=== PATIENT | female | born 1940 | race Asian ===

== ENCOUNTER 2019-01-21 08:14 | Inpatient (IN) | payer MEDICARE ==
[2019-01-21] VITALS (40 sets, daily range): BP systolic 92–217; BP diastolic 48–110
[~2019-01-21] VITALS: Ht 157.5 cm; Wt 73.5 kg
[2019-01-21] MEDS ORDERED: ONDANSETRON HCL 4MG/2ML INJ IV STA (08:54)
[2019-01-21] MEDS ORDERED: KETOROLAC 30MG/ML VIAL IV STA (08:54)
[2019-01-21 09:25] LABS: BASOPHILS % 0.1 % (0.0-2.0); CHLORIDE 88 mEq/L (98-107); EOSINOPHILS % 0.2 % (0.0-5.0); HEMATOCRIT. 49.6 % (36.0-48.0); HEMOGLOBIN. 17.2 g/dL (12.0-16.0); LYMPHOCYTES % 10.1 % (20.0-50.0); MEAN CORPUSCULAR HEMOGLOBIN 31.6 pg (28.0-32.0); MEAN CORPUSCULAR VOLUME 91.1 fL (81.0-99.0); MEAN PLATELET VOLUME 8.4 fl (7.4-10.4); MONOCYTES % 3.7 % (2.0-8.0); NEUTROPHILS % 85.9 % (40.0-76.0); PLATELET 199 x1000/uL (130-400); RED BLOOD CELL COUNT 5.45 mill/uL (4.2-5.4); RED CELL DISTRIBUTION WIDTH 13.5 % (11.6-14.6)
[2019-01-21 09:27] LABS: INR 1.1; PROTHROMBIN TIME 11.8 sec (9.6-11.0)
[2019-01-21] MEDS ORDERED: LEVOFLOXACIN 750MG PREMIX 150 ML IV ONE (10:30)
[2019-01-21] MEDS ORDERED: METRONIDAZOLE 500 MG PREMIX 100 ML IV ONE ×2 (10:30→11:17)
[2019-01-21] MEDS ORDERED: BUPIVACAINE HCL 0.5% (5MG/ML) 50ML ONE (10:43)
[2019-01-21] MEDS ORDERED: DEXT 5%/0.45% NACL KCL 20MEQ/L 1,000 ML IV SCH (10:50)
[2019-01-21] MEDS ORDERED: SODIUM CHLORIDE 0.9% 500 ML IV ONE (10:51)
[2019-01-21] MEDS ORDERED: SKIN ADHESIVE 0.7 GM EA TOP ONE (10:54)
[2019-01-21] MEDS ORDERED: ONDANSETRON HCL 4MG/2ML INJ IV PRN ×3 (11:00→14:00)
[2019-01-21] MEDS ORDERED: NEOSTIGMINE METHYLSULFATE 1MG/ML 10 ML VIAL ONE (11:16)
[2019-01-21] MEDS ORDERED: FENTANYL CITRATE/PF 50MCG/ML 2ML VIAL ONE ×2 (11:16→12:41)
[2019-01-21] MEDS ORDERED: ROCURONIUM BROMIDE 10MG/ML VIAL 5ML IV ONE (11:16)
[2019-01-21] MEDS ORDERED: PROPOFOL 200MG/20ML VIAL IV ONE (11:17)
[2019-01-21] MEDS ORDERED: LEVOFLOXACIN 500MG PREMIX 0 ML IV ONE (11:17)
[2019-01-21] MEDS ORDERED: DEXAMETHASONE 4MG/ML 1ML VIAL ONE (11:17)
[2019-01-21] MEDS ORDERED: GLYCOPYRROLATE 0.2 MG/ML 2ML VIAL ONE (11:17)
[2019-01-21] MEDS ORDERED: ONDANSETRON HCL 4MG/2ML INJ ONE (11:17)
[2019-01-21] MEDS ORDERED: MIDAZOLAM HCL 2 MG/2 ML VIAL ONE (11:17)
[2019-01-21] MEDS ORDERED: HYDROMORPHONE HCL/PF 2MG/ML CPJ IV PRN (12:15)
[2019-01-21] MEDS ORDERED: MEPERIDINE HCL/PF 25MG/ML CPJ IV PRN (12:15)
[2019-01-21] MEDS ORDERED: LABETALOL 5MG/ML SYR 20 MG/4 ML SYRINGE IV PRN (12:15)
[2019-01-21] MEDS ORDERED: PHENYLEPHRINE HCL 10 MG/ML 1ML (IV VIAL) IV ONE (12:56)
[2019-01-21] MEDS ORDERED: PIPERACILLIN/TAZ 3.375G PREMIX 50 ML IV SCH (14:00)
[2019-01-21] MEDS ORDERED: IPRATROPIUM/ALBUTEROL 0.5-3(2.5)MG/3ML NEB HHN SCH (14:00)
[2019-01-21] MEDS ORDERED: ENOXAPARIN 40MG/0.4ML SYR SUBCUT SCH (14:00)
[2019-01-21 14:27] LABS: BG BASE EXCESS -5.5 mmol/L (-2.0-2.0); BG CARBOXYHEMOGLOBIN 0.2 % (0.5-1.5); BG DEOXYHEMOGLOBIN 0.4 % (0.0-5.0); BG FRACTION INSPIRED OXYGEN 100; BG HCO3 ACT 20.7 mmol/L (22.0-26.0); BG OXYGEN SATURATION 99.6 % (92.0-98.5); BG OXYHEMOGLOBIN 99.4 % (94.0-97.0); BG PCO2 42.9 mmHg (35.0-45.0); BG PH 7.302 (7.350-7.450); BG PO2 409.6 mmHg (75.0-100.0); BG SAMPLE SITE RIGHT RADIAL; BG TIDAL VOLUME(mL) 500 mL; BG TOTAL HEMOGLOBIN 14.8 g/dL (12.0-18.0); BG VENT MODE VENT - A/C; BG VENT RATE 10 set
[2019-01-21] MEDS ORDERED: PROPOFOL 10MG/ML 100ML 100 ML IV PRN (14:30)
[2019-01-21] MEDS ORDERED: DEXT 5%/LACTATED RINGERS 1,000 ML IV SCH (15:00)
[2019-01-21] MEDS ORDERED: POTASSIUM CHLORIDE INJ 20 MEQ in SODIUM CHLORIDE 0.9% 1,000 ML IV SCH (17:00)
[2019-01-21 17:17] LABS: CLARITY URINE TURBID (CLEAR); COLOR URINE DARK YELLOW (YELLOW); KETONES URINE NEGATIVE (NEGATIVE); LEUKOCYTE ESTERASE URINE NEGATIVE (NEGATIVE); NITRITE URINE NEGATIVE (NEGATIVE); OCCULT BLOOD URINE 2+ (NEGATIVE); PROTEIN URINE 2+ (NEGATIVE); SPECIFIC GRAVITY URINE 1.016 (1.005-1.030); UROBILINOGEN URINE 0.2 E.U./dL (0.2-1.0)
[2019-01-21 17:43] LABS: T4 FREE 1.71 ng/dL (0.76-1.46)
[2019-01-21 17:45] LABS: CREATINE KINASE MB FRACTION 3.1 ng/mL (0.5-3.6)
[2019-01-21] MEDS: SODIUM CHL 0.9% + KCL 20MEQ/L 1,000 ML IV SCH (17:48)
[2019-01-21] MEDS: PIPERACILLIN/TAZ 2.25G PREMIX 50 ML IV SCH (17:48)
[2019-01-21 18:13] LABS: FOLIC ACID (FOLATE) SERUM >20 ng/mL ng/mL (>5.38)
[2019-01-21 18:24] LABS: VITAMIN B12 SERUM 1612 pg/mL (211-911)
[2019-01-21] MEDS ORDERED: FENTANYL CITRATE/PF 1,000 MCG in SODIUM CHLORIDE 0.9% 100 ML IV PRN (20:00)
[2019-01-21] MEDS: IPRATROPIUM/ALBUTEROL 0.5-3(2.5)MG/3ML NEB HHN SCH (20:26)
[2019-01-21] MEDS: FAMOTIDINE 20MG/2ML VIAL IV SCH (20:39)
[2019-01-21] MEDS ORDERED: DILTIAZEM HCL 5MG/ML 5ML VIAL IV SCH (23:00)
[2019-01-21] MEDS ORDERED: DILTIAZEM HCL 125 MG in DEXT 5% WATER 100 ML IV PRN (23:15)
[2019-01-22] VITALS (93 sets, daily range): BP systolic 93–160; BP diastolic 31–91
[2019-01-22 05:32] LABS: HEMATOCRIT. 37.4 % (36.0-48.0); MEAN CORPUSCULAR HEMOGLOBIN 31.8 pg (28.0-32.0); MEAN CORPUSCULAR VOLUME 91.3 fL (81.0-99.0); MEAN PLATELET VOLUME 8.3 fl (7.4-10.4); PLATELET 151 x1000/uL (130-400); RED CELL DISTRIBUTION WIDTH 13.3 % (11.6-14.6)
[2019-01-22] MEDS: PIPERACILLIN/TAZ 2.25G PREMIX 50 ML IV SCH ×2 (05:35→17:28)
[2019-01-22 05:40] LABS: CHLORIDE 104 mEq/L (98-107)
[2019-01-22 05:47] LABS: PHOSPHORUS 3.5 mg/dL (2.5-4.9)
[2019-01-22] MEDS: SODIUM CHL 0.9% + KCL 20MEQ/L 1,000 ML IV SCH ×4 (06:38→21:42)
[2019-01-22 07:55] LABS: BG BASE EXCESS -6.2 mmol/L (-2.0-2.0); BG CARBOXYHEMOGLOBIN 0.3 % (0.5-1.5); BG DEOXYHEMOGLOBIN 1.3 % (0.0-5.0); BG HCO3 ACT 16.6 mmol/L (22.0-26.0); BG OXYGEN SATURATION 98.7 % (92.0-98.5); BG OXYHEMOGLOBIN 98.4 % (94.0-97.0); BG PCO2 25.8 mmHg (35.0-45.0); BG PH 7.427 (7.350-7.450); BG PO2 138.9 mmHg (75.0-100.0); BG SAMPLE SITE RIGHT RADIAL; BG TIDAL VOLUME(mL) 500 mL; BG TOTAL HEMOGLOBIN 12.4 g/dL (12.0-18.0); BG VENT MODE VENT - A/C; BG VENT RATE 14 set
[2019-01-22] MEDS: IPRATROPIUM/ALBUTEROL 0.5-3(2.5)MG/3ML NEB HHN SCH ×3 (07:58→20:21)
[2019-01-22] MEDS: ENOXAPARIN 30MG/0.3ML SYR SUBCUT SCH (09:00)
[2019-01-22] MEDS ORDERED: LIDOCAINE HCL 1% 20ML VIAL (Pyxis) INJ ONE (09:22)
[2019-01-22 09:45] LABS: PLATELET ESTIMATE NORMAL
[2019-01-22] MEDS ORDERED: AMIODARONE HCL 150 MG in DEXT 5% WATER 100 ML IV ONE (10:15)
[2019-01-22] MEDS ORDERED: AMIODARONE HCL 900 MG in DEXT 5% WATER 500 ML IV SCH (10:15)
[2019-01-22] MEDS: BUPIVACAINE HCL 0.5% 125 ML in ON-Q PM012 DRUG DELIV DEVICE 1 EA IR SCH (13:00)
[2019-01-22 14:00] LABS: BG BASE EXCESS -5.7 mmol/L (-2.0-2.0); BG CARBOXYHEMOGLOBIN 0.3 % (0.5-1.5); BG DEOXYHEMOGLOBIN 1.5 % (0.0-5.0); BG FRACTION INSPIRED OXYGEN 40; BG HCO3 ACT 17.2 mmol/L (22.0-26.0); BG METHEMOGLOBIN 0.2 % (0.0-1.5); BG OXYGEN SATURATION 98.5 % (92.0-98.5); BG PCO2 26.5 mmHg (35.0-45.0); BG PO2 151.1 mmHg (75.0-100.0); BG PRESSURE SUPPORT 8; BG SAMPLE SITE RIGHT RADIAL; BG TOTAL HEMOGLOBIN 11.9 g/dL (12.0-18.0); BG VENT MODE VENT - CPAP
[2019-01-22] MEDS ORDERED: RACEPINEPHRINE 2.25% 0.5ML NEB VIAL HHN PRN (14:45)
[2019-01-22] MEDS: FAMOTIDINE 20MG/2ML VIAL IV SCH (21:42)
[2019-01-23] VITALS (94 sets, daily range): BP systolic 124–208; BP diastolic 54–125
[2019-01-23] MEDS: IPRATROPIUM/ALBUTEROL 0.5-3(2.5)MG/3ML NEB HHN SCH ×4 (02:22→21:24)
[2019-01-23] MEDS: PIPERACILLIN/TAZ 2.25G PREMIX 50 ML IV SCH ×2 (05:04→16:55)
[2019-01-23 06:06] LABS: HEMATOCRIT. 31.5 % (36.0-48.0); HEMOGLOBIN. 10.6 g/dL (12.0-16.0); MEAN CORPUSCULAR VOLUME 91.8 fL (81.0-99.0); MEAN PLATELET VOLUME 8.3 fl (7.4-10.4); PLATELET 162 x1000/uL (130-400); RED BLOOD CELL COUNT 3.43 mill/uL (4.2-5.4); RED CELL DISTRIBUTION WIDTH 14.1 % (11.6-14.6)
[2019-01-23 06:18] LABS: CHLORIDE 115 mEq/L (98-107)
[2019-01-23 06:24] LABS: PHOSPHORUS 1.9 mg/dL (2.5-4.9)
[2019-01-23] MEDS: ENOXAPARIN 30MG/0.3ML SYR SUBCUT SCH (08:54)
[2019-01-23] MEDS: SODIUM CHL 0.9% + KCL 20MEQ/L 1,000 ML IV SCH ×2 (08:54→16:22)
[2019-01-23] MEDS: HYDRALAZINE 20MG/ML VIAL IV PRN ×2 (10:06→16:55)
[2019-01-23 10:55] LABS: PLATELET ESTIMATE NORMAL
[2019-01-23] MEDS ORDERED: AMIODARONE HCL 900 MG in DEXT 5% WATER 500 ML IV SCH (13:00)
[2019-01-23] MEDS: BUPIVACAINE HCL 0.5% 125 ML in ON-Q PM012 DRUG DELIV DEVICE 1 EA IR SCH (13:00)
[2019-01-23] MEDS ORDERED: CLONIDINE HCL 0.2MG/24HR PATCH TD ONE (18:30)
[2019-01-23] MEDS ORDERED: POTASSIUM PHOS,M-BASIC-D-BASIC 15 MMOL in DEXT 5% WATER 245 ML IV SCH (18:30)
[2019-01-23] MEDS ORDERED: AMIODARONE HCL 50MG/ML 3ML VIAL IV ONE (19:00)
[2019-01-23] MEDS ORDERED: AMIODARONE HCL 150 MG in DEXT 5% WATER 100 ML IV NR (19:00)
[2019-01-23] MEDS ORDERED: HYDRALAZINE 20MG/ML VIAL IV ONE (20:30)
[2019-01-23] MEDS: FAMOTIDINE 20MG/2ML VIAL IV SCH (20:46)
[2019-01-24] VITALS (61 sets, daily range): BP systolic 120–188; BP diastolic 17–133
[2019-01-24] MEDS: SODIUM CHL 0.9% + KCL 20MEQ/L 1,000 ML IV SCH ×3 (01:42→21:20)
[2019-01-24] MEDS: HYDRALAZINE 20MG/ML VIAL IV PRN ×2 (04:41→11:58)
[2019-01-24] MEDS: PIPERACILLIN/TAZ 2.25G PREMIX 50 ML IV SCH ×2 (05:02→17:33)
[2019-01-24 05:05] LABS: HEMATOCRIT. 33.3 % (36.0-48.0); HEMOGLOBIN. 11.4 g/dL (12.0-16.0); MEAN CORPUSCULAR HEMOGLOBIN 31.2 pg (28.0-32.0); MEAN CORPUSCULAR VOLUME 91.3 fL (81.0-99.0); MEAN PLATELET VOLUME 8.2 fl (7.4-10.4); PLATELET 177 x1000/uL (130-400); RED BLOOD CELL COUNT 3.65 mill/uL (4.2-5.4); RED CELL DISTRIBUTION WIDTH 14.2 % (11.6-14.6)
[2019-01-24 05:30] LABS: PHOSPHORUS 1.7 mg/dL (2.5-4.9)
[2019-01-24] MEDS: IPRATROPIUM/ALBUTEROL 0.5-3(2.5)MG/3ML NEB HHN SCH ×3 (08:03→20:24)
[2019-01-24] MEDS: ENOXAPARIN 30MG/0.3ML SYR SUBCUT SCH (09:17)
[2019-01-24] MEDS ORDERED: MORPHINE SULFATE 4 MG/ML CPJ (NOT FOR IM USE) IV PRN (09:30)
[2019-01-24 10:20] LABS: PLATELET ESTIMATE NORMAL
[2019-01-24] MEDS: AMIODARONE HCL 900 MG in DEXT 5% WATER 500 ML IV PRN (10:29)
[2019-01-24] MEDS ORDERED: LORAZEPAM 2MG/ML CPJ IV PRN (12:00)
[2019-01-24] MEDS ORDERED: ENOXAPARIN 40MG/0.4ML SYR SUBCUT NR (12:00)
[2019-01-24] MEDS: BUPIVACAINE HCL 0.5% 125 ML in ON-Q PM012 DRUG DELIV DEVICE 1 EA IR SCH (13:00)
[2019-01-24] MEDS: DILTIAZEM HCL 125 MG in DEXT 5% WATER 100 ML IV SCH (13:11)
[2019-01-24] MEDS ORDERED: MAGNESIUM 2 G PREMIX 50 ML IV ONE (14:45)
[2019-01-24 17:10] LABS: PHOSPHORUS 2.4 mg/dL (2.5-4.9)
[2019-01-24] MEDS ORDERED: POTASSIUM PHOS,M-BASIC-D-BASIC 15 MMOL in DEXT 5% WATER 245 ML IV SCH (18:30)
[2019-01-24] MEDS: FAMOTIDINE 20MG/2ML VIAL IV SCH (20:30)
[2019-01-24] MEDS: ENOXAPARIN 80MG/0.8ML SYR SUBCUT SCH (20:30)
[2019-01-25] VITALS (40 sets, daily range): BP systolic 125–183; BP diastolic 58–103
[2019-01-25] MEDS: IPRATROPIUM/ALBUTEROL 0.5-3(2.5)MG/3ML NEB HHN SCH ×4 (02:36→20:51)
[2019-01-25] MEDS: HYDRALAZINE 20MG/ML VIAL IV PRN ×3 (03:07→19:39)
[2019-01-25] MEDS: PIPERACILLIN/TAZ 2.25G PREMIX 50 ML IV SCH (05:18)
[2019-01-25 05:47] LABS: HEMOGLOBIN. 10.6 g/dL (12.0-16.0); MEAN CORPUSCULAR HEMOGLOBIN 30.8 pg (28.0-32.0); MEAN CORPUSCULAR VOLUME 90.4 fL (81.0-99.0); MEAN PLATELET VOLUME 7.9 fl (7.4-10.4); PLATELET 193 x1000/uL (130-400); RED BLOOD CELL COUNT 3.43 mill/uL (4.2-5.4); RED CELL DISTRIBUTION WIDTH 14.7 % (11.6-14.6)
[2019-01-25 06:06] LABS: CHLORIDE 112 mEq/L (98-107)
[2019-01-25 06:15] LABS: PHOSPHORUS 2.7 mg/dL (2.5-4.9)
[2019-01-25] MEDS: SODIUM CHL 0.9% + KCL 20MEQ/L 1,000 ML IV SCH ×2 (06:59→18:25)
[2019-01-25 08:22] LABS: PLATELET ESTIMATE NORMAL
[2019-01-25] MEDS: ENOXAPARIN 80MG/0.8ML SYR SUBCUT SCH ×2 (09:18→21:04)
[2019-01-25] MEDS: AMIODARONE HCL 900 MG in DEXT 5% WATER 500 ML IV PRN (12:04)
[2019-01-25] MEDS: DILTIAZEM HCL 125 MG in DEXT 5% WATER 100 ML IV SCH (12:05)
[2019-01-25] MEDS ORDERED: CLONIDINE HCL 0.3MG/24HR PATCH TD SCH (13:00)
[2019-01-25] MEDS: PIPERACILLIN/TAZ 3.375G PREMIX 50 ML IV SCH (18:24)
[2019-01-25] MEDS: FAMOTIDINE 20MG/2ML VIAL IV SCH (21:04)
[2019-01-26] VITALS (77 sets, daily range): BP systolic 120–172; BP diastolic 45–110
[2019-01-26] MEDS: PIPERACILLIN/TAZ 3.375G PREMIX 50 ML IV SCH ×3 (01:59→18:10)
[2019-01-26] MEDS: SODIUM CHL 0.9% + KCL 20MEQ/L 1,000 ML IV SCH ×2 (01:59→05:49)
[2019-01-26] MEDS: IPRATROPIUM/ALBUTEROL 0.5-3(2.5)MG/3ML NEB HHN SCH ×4 (02:25→21:17)
[2019-01-26] MEDS: DILTIAZEM HCL 125 MG in DEXT 5% WATER 100 ML IV SCH (04:10)
[2019-01-26 06:57] LABS: BASOPHILS % 0.2 % (0.0-2.0); EOSINOPHILS % 0.2 % (0.0-5.0); HEMATOCRIT. 33.2 % (36.0-48.0); HEMOGLOBIN. 11.1 g/dL (12.0-16.0); LYMPHOCYTES % 12.3 % (20.0-50.0); MEAN CORPUSCULAR HEMOGLOBIN 30.5 pg (28.0-32.0); MEAN CORPUSCULAR VOLUME 91.2 fL (81.0-99.0); MEAN PLATELET VOLUME 7.8 fl (7.4-10.4); MONOCYTES % 2.5 % (2.0-8.0); NEUTROPHILS % 84.8 % (40.0-76.0); PLATELET 229 x1000/uL (130-400); RED BLOOD CELL COUNT 3.64 mill/uL (4.2-5.4); RED CELL DISTRIBUTION WIDTH 14.5 % (11.6-14.6)
[2019-01-26 07:12] LABS: CHLORIDE 106 mEq/L (98-107)
[2019-01-26] MEDS: HYDRALAZINE 20MG/ML VIAL IV PRN ×2 (08:41→18:10)
[2019-01-26] MEDS: ENOXAPARIN 80MG/0.8ML SYR SUBCUT SCH ×2 (10:13→21:32)
[2019-01-26] MEDS: DEXT 5%/0.9% NACL 1,000 ML IV SCH ×2 (11:16→20:22)
[2019-01-26] MEDS ORDERED: ENALAPRIL 1.25MG/ML VIAL 1ML IV PRN (11:30)
[2019-01-26] MEDS ORDERED: MAGNESIUM 1 G PREMIX 100 ML IV SCH (11:30)
[2019-01-26] MEDS: AMIODARONE HCL 900 MG in DEXT 5% WATER 500 ML IV PRN (14:51)
[2019-01-26] MEDS: FAMOTIDINE 20MG/2ML VIAL IV SCH (21:32)
[2019-01-27] VITALS (48 sets, daily range): BP systolic 118–166; BP diastolic 52–80
[2019-01-27] MEDS: IPRATROPIUM/ALBUTEROL 0.5-3(2.5)MG/3ML NEB HHN SCH ×3 (02:27→20:38)
[2019-01-27] MEDS: PIPERACILLIN/TAZ 3.375G PREMIX 50 ML IV SCH ×3 (02:43→18:30)
[2019-01-27] MEDS: AMIODARONE HCL 900 MG in DEXT 5% WATER 500 ML IV PRN ×3 (04:50→13:16)
[2019-01-27 06:04] LABS: HEMATOCRIT. 31.4 % (36.0-48.0); HEMOGLOBIN. 10.8 g/dL (12.0-16.0); MEAN CORPUSCULAR HEMOGLOBIN 31.4 pg (28.0-32.0); MEAN PLATELET VOLUME 7.9 fl (7.4-10.4); PLATELET 236 x1000/uL (130-400); RED BLOOD CELL COUNT 3.45 mill/uL (4.2-5.4); RED CELL DISTRIBUTION WIDTH 14.5 % (11.6-14.6)
[2019-01-27] MEDS: DEXT 5%/0.9% NACL 1,000 ML IV SCH ×2 (06:07→17:56)
[2019-01-27 06:31] LABS: CHLORIDE 107 mEq/L (98-107)
[2019-01-27 09:22] LABS: PLATELET ESTIMATE NORMAL
[2019-01-27] MEDS: ENOXAPARIN 80MG/0.8ML SYR SUBCUT SCH ×2 (09:59→20:44)
[2019-01-27] MEDS: HYDRALAZINE 20MG/ML VIAL IV SCH ×2 (12:20→17:55)
[2019-01-27] MEDS ORDERED: HYDRALAZINE 20MG/ML VIAL IV SCH (18:00)
[2019-01-27] MEDS: FAMOTIDINE 20MG/2ML VIAL IV SCH (20:44)
[2019-01-28] VITALS (25 sets, daily range): BP systolic 102–152; BP diastolic 50–98
[2019-01-28] MEDS: HYDRALAZINE 20MG/ML VIAL IV SCH ×4 (00:48→12:00)
[2019-01-28] MEDS: PIPERACILLIN/TAZ 3.375G PREMIX 50 ML IV SCH ×2 (03:08→09:34)
[2019-01-28] MEDS: DEXT 5%/0.9% NACL 1,000 ML IV SCH ×2 (03:21→14:03)
[2019-01-28 07:16] LABS: BASOPHILS % 0.2 % (0.0-2.0); EOSINOPHILS % 0.1 % (0.0-5.0); HEMATOCRIT. 29.4 % (36.0-48.0); HEMOGLOBIN. 10.2 g/dL (12.0-16.0); LYMPHOCYTES % 11.9 % (20.0-50.0); MEAN CORPUSCULAR HEMOGLOBIN 31.2 pg (28.0-32.0); MEAN CORPUSCULAR VOLUME 90.1 fL (81.0-99.0); MEAN PLATELET VOLUME 7.8 fl (7.4-10.4); MONOCYTES % 3.7 % (2.0-8.0); NEUTROPHILS % 84.1 % (40.0-76.0); PLATELET 248 x1000/uL (130-400); RED BLOOD CELL COUNT 3.26 mill/uL (4.2-5.4); RED CELL DISTRIBUTION WIDTH 14.4 % (11.6-14.6)
[2019-01-28 07:29] LABS: CHLORIDE 108 mEq/L (98-107)
[2019-01-28] MEDS: ENOXAPARIN 80MG/0.8ML SYR SUBCUT SCH ×2 (09:34→21:00)
[2019-01-28] MEDS ORDERED: AMIODARONE HCL 200 MG TABLET PO SCH ×3 (10:00→22:00)
[2019-01-28] MEDS ORDERED: CLONIDINE 0.2MG TABLET PO PRN (10:15)
[2019-01-28] MEDS ORDERED: CLONIDINE 0.1MG TABLET PO PRN (10:15)
[2019-01-28] MEDS: AMLODIPINE 2.5MG TABLET PO SCH ×2 (11:00→21:00)
[2019-01-28] MEDS ORDERED: MAGNESIUM 1 G PREMIX 100 ML IV NR (11:00)
[2019-01-28] MEDS ORDERED: POTASSIUM CHLORIDE 20MEQ TABLET SR PO NR (11:00)
[2019-01-28] MEDS ORDERED: HYDRALAZINE 20MG/ML VIAL IV PRN (13:30)
[2019-01-28] MEDS ORDERED: TRAMADOL 50MG TABLET PO PRN (15:15)
[2019-01-28] MEDS: IPRATROPIUM/ALBUTEROL 0.5-3(2.5)MG/3ML NEB HHN SCH ×2 (15:46→20:37)
[2019-01-28 20:50] LABS: BG BASE EXCESS -4.5 mmol/L (-2.0-2.0); BG CARBOXYHEMOGLOBIN 0.3 % (0.5-1.5); BG DEOXYHEMOGLOBIN 2.8 % (0.0-5.0); BG FRACTION INSPIRED OXYGEN 28; BG HCO3 ACT 17.2 mmol/L (22.0-26.0); BG METHEMOGLOBIN 0.3 % (0.0-1.5); BG OXYGEN SATURATION 97.2 % (92.0-98.5); BG OXYHEMOGLOBIN 96.6 % (94.0-97.0); BG PCO2 22.8 mmHg (35.0-45.0); BG PH 7.495 (7.350-7.450); BG PO2 95.3 mmHg (75.0-100.0); BG SAMPLE SITE RIGHT RADIAL; BG TOTAL HEMOGLOBIN 11.4 g/dL (12.0-18.0); BG VENT MODE NASAL CANNULA
[2019-01-28] MEDS: AMIODARONE HCL 200 MG TABLET PO SCH (21:00)
[2019-01-28] MEDS: FAMOTIDINE 20MG/2ML VIAL IV SCH (21:32)
[2019-01-29] VITALS (103 sets, daily range): BP systolic 76–138; BP diastolic 39–83
[2019-01-29] MEDS: DEXT 5%/0.9% NACL 1,000 ML IV SCH (00:05)
[2019-01-29] MEDS: IPRATROPIUM/ALBUTEROL 0.5-3(2.5)MG/3ML NEB HHN SCH ×4 (01:33→20:00)
[2019-01-29] MEDS: AMIODARONE HCL 200 MG TABLET PO SCH (02:28)
[2019-01-29 04:56] LABS: CHLORIDE 109 mEq/L (98-107)
[2019-01-29 08:05] LABS: HEMATOCRIT. 21.7 % (36.0-48.0); MEAN CORPUSCULAR HEMOGLOBIN 30.1 pg (28.0-32.0); MEAN CORPUSCULAR VOLUME 93.6 fL (81.0-99.0); MEAN PLATELET VOLUME 8.8 fl (7.4-10.4); PLATELET 275 x1000/uL (130-400); RED BLOOD CELL COUNT 2.32 mill/uL (4.2-5.4); RED CELL DISTRIBUTION WIDTH 14.6 % (11.6-14.6)
[2019-01-29 08:49] LABS: BG BASE EXCESS -6.7 mmol/L (-2.0-2.0); BG CARBOXYHEMOGLOBIN 0.3 % (0.5-1.5); BG DEOXYHEMOGLOBIN 6.1 % (0.0-5.0); BG FRACTION INSPIRED OXYGEN 28; BG HCO3 ACT 14.7 mmol/L (22.0-26.0); BG METHEMOGLOBIN 0.9 % (0.0-1.5); BG OXYGEN SATURATION 93.8 % (92.0-98.5); BG OXYHEMOGLOBIN 92.7 % (94.0-97.0); BG PO2 67.4 mmHg (75.0-100.0); BG SAMPLE SITE RIGHT RADIAL; BG TOTAL HEMOGLOBIN 8.3 g/dL (12.0-18.0); BG VENT MODE NASAL CANNULA
[2019-01-29] MEDS: AMLODIPINE 2.5MG TABLET PO SCH (09:00)
[2019-01-29] MEDS: ENOXAPARIN 80MG/0.8ML SYR SUBCUT SCH (09:00)
[2019-01-29 09:26] LABS: PLATELET ESTIMATE NORMAL
[2019-01-29] MEDS ORDERED: SUCCINYLCHOLINE CHLORIDE 200MG/10ML IV ONE (09:30)
[2019-01-29] MEDS ORDERED: ETOMIDATE 2MG/ML 10ML VIAL IV ONE (09:30)
[2019-01-29] MEDS ORDERED: MORPHINE SULFATE 2 MG/ML CPJ (NOT FOR IM USE) IV PRN (10:15)
[2019-01-29] MEDS ORDERED: SODIUM CHLORIDE 0.9% 500 ML IV ONE ×2 (10:15→18:30)
[2019-01-29 10:21] LABS: BG BASE EXCESS -11.7 mmol/L (-2.0-2.0); BG CARBOXYHEMOGLOBIN 0.3 % (0.5-1.5); BG DEOXYHEMOGLOBIN 2.2 % (0.0-5.0); BG FRACTION INSPIRED OXYGEN 50; BG HCO3 ACT 11.1 mmol/L (22.0-26.0); BG OXYGEN SATURATION 97.8 % (92.0-98.5); BG OXYHEMOGLOBIN 96.5 % (94.0-97.0); BG PCO2 16.8 mmHg (35.0-45.0); BG PH 7.438 (7.350-7.450); BG PO2 117.7 mmHg (75.0-100.0); BG SAMPLE SITE RIGHT RADIAL; BG TIDAL VOLUME(mL) 500 mL; BG TOTAL HEMOGLOBIN 7.1 g/dL (12.0-18.0); BG VENT MODE VENT - A/C; BG VENT RATE 12 set
[2019-01-29] MEDS: MIDAZOLAM HCL 100 MG in DEXT 5% WATER 80 ML IV PRN (11:21)
[2019-01-29] MEDS: DEXT 5%/0.45% NACL 1000ML 1,000 ML IV SCH ×2 (11:22→20:55)
[2019-01-29 11:41] LABS: CLARITY URINE CLOUDY (CLEAR); COLOR URINE ORANGE (YELLOW); KETONES URINE TRACE (NEGATIVE); LEUKOCYTE ESTERASE URINE 1+ (NEGATIVE); NITRITE URINE POSITIVE (NEGATIVE); OCCULT BLOOD URINE NEGATIVE (NEGATIVE); PROTEIN URINE NEGATIVE (NEGATIVE); SPECIFIC GRAVITY URINE 1.024 (1.005-1.030)
[2019-01-29] MEDS ORDERED: NOREPINEPHRINE 8 MG in DEXT 5% WATER 492 ML IV PRN (12:30)
[2019-01-29] MEDS: PIPERACILLIN/TAZ 3.375G PREMIX 50 ML IV SCH ×2 (12:48→19:41)
[2019-01-29] MEDS ORDERED: LIDOCAINE HCL 1% 20ML VIAL (Pyxis) INJ ONE (13:00)
[2019-01-29] MEDS ORDERED: SODIUM BICARBONATE 4% (2.4MEQ) 5ML VIAL IV ONE (13:00)
[2019-01-29] MEDS: METRONIDAZOLE 500 MG PREMIX 100 ML IV SCH ×2 (14:51→18:20)
[2019-01-29 15:23] LABS: INR 3.9
[2019-01-29 15:27] LABS: BG BASE EXCESS -6.4 mmol/L (-2.0-2.0); BG CARBOXYHEMOGLOBIN 0.1 % (0.5-1.5); BG DEOXYHEMOGLOBIN 2.9 % (0.0-5.0); BG FRACTION INSPIRED OXYGEN 45; BG HCO3 ACT 15.5 mmol/L (22.0-26.0); BG METHEMOGLOBIN 0.1 % (0.0-1.5); BG OXYGEN SATURATION 97.1 % (92.0-98.5); BG OXYHEMOGLOBIN 96.9 % (94.0-97.0); BG PCO2 20.6 mmHg (35.0-45.0); BG PH 7.495 (7.350-7.450); BG PO2 89.4 mmHg (75.0-100.0); BG SAMPLE SITE RIGHT RADIAL; BG TIDAL VOLUME(mL) 500 mL; BG TOTAL HEMOGLOBIN 9.2 g/dL (12.0-18.0); BG VENT MODE VENT - A/C; BG VENT RATE 16 set
[2019-01-29 18:09] LABS: HEMATOCRIT 26.8 % (36.0-48.0); HEMOGLOBIN 9.1 g/dL (12.0-16.0)
[2019-01-29] MEDS: ACETAMINOPHEN 650MG SUPP PR PRN (18:21)
[2019-01-29] MEDS ORDERED: AMIODARONE HCL 150 MG in DEXT 5% WATER 100 ML IV NR (19:30)
[2019-01-29] MEDS: FAMOTIDINE 20MG/2ML VIAL IV SCH (20:04)
[2019-01-29] MEDS: AMIODARONE HCL 900 MG in DEXT 5% WATER 482 ML IV PRN (20:04)
[2019-01-30] VITALS (94 sets, daily range): BP systolic 69–151; BP diastolic 23–100
[2019-01-30] MEDS ORDERED: NOREPINEPHRINE 32 MG in DEXT 5% WATER 468 ML IV PRN (01:15)
[2019-01-30] MEDS: METRONIDAZOLE 500 MG PREMIX 100 ML IV SCH ×4 (01:44→18:34)
[2019-01-30] MEDS: IPRATROPIUM/ALBUTEROL 0.5-3(2.5)MG/3ML NEB HHN SCH ×4 (02:02→19:46)
[2019-01-30] MEDS: PIPERACILLIN/TAZ 3.375G PREMIX 50 ML IV SCH ×3 (04:57→20:37)
[2019-01-30 05:42] LABS: HEMATOCRIT. 26.6 % (36.0-48.0); HEMOGLOBIN. 9.2 g/dL (12.0-16.0); MEAN CORPUSCULAR HEMOGLOBIN 31.2 pg (28.0-32.0); MEAN CORPUSCULAR VOLUME 90.3 fL (81.0-99.0); MEAN PLATELET VOLUME 8.7 fl (7.4-10.4); PLATELET 211 x1000/uL (130-400); RED BLOOD CELL COUNT 2.95 mill/uL (4.2-5.4); RED CELL DISTRIBUTION WIDTH 16.6 % (11.6-14.6)
[2019-01-30] MEDS: DEXT 5%/0.45% NACL 1000ML 1,000 ML IV SCH ×2 (06:43→16:40)
[2019-01-30 07:43] LABS: BG CARBOXYHEMOGLOBIN 0.3 % (0.5-1.5); BG DEOXYHEMOGLOBIN 2.2 % (0.0-5.0); BG HCO3 ACT 16.8 mmol/L (22.0-26.0); BG METHEMOGLOBIN 0.6 % (0.0-1.5); BG OXYGEN SATURATION 97.8 % (92.0-98.5); BG OXYHEMOGLOBIN 96.9 % (94.0-97.0); BG PCO2 23.8 mmHg (35.0-45.0); BG PH 7.467 (7.350-7.450); BG PO2 105.5 mmHg (75.0-100.0); BG SAMPLE SITE RIGHT RADIAL; BG TIDAL VOLUME(mL) 500 mL; BG TOTAL HEMOGLOBIN 7.8 g/dL (12.0-18.0); BG VENT MODE VENT - A/C; BG VENT RATE 16 set
[2019-01-30] MEDS: ACETAMINOPHEN 650MG SUPP PR PRN ×2 (08:41→16:45)
[2019-01-30] MEDS ORDERED: CLONIDINE HCL 0.3MG/24HR PATCH TD SCH (09:00)
[2019-01-30 09:53] LABS: PLATELET ESTIMATE NORMAL
[2019-01-30] MEDS ORDERED: PHENYLEPHRINE 40 MG in DEXT 5% WATER 246 ML IV PRN (10:45)
[2019-01-30] MEDS: MIDAZOLAM HCL 100 MG in DEXT 5% WATER 80 ML IV PRN (12:27)
[2019-01-30 13:30] LABS: D-DIMER 5.94 mg/L FEU (<0.50); INR 2.3; PARTIAL THROMBOPLASTIN TIME 39.8 sec (23.4-31.0); PROTHROMBIN TIME 22.9 sec (9.6-11.0)
[2019-01-30] MEDS: AMIODARONE HCL 900 MG in DEXT 5% WATER 482 ML IV PRN (18:35)
[2019-01-30] MEDS: FAMOTIDINE 20MG/2ML VIAL IV SCH (20:37)
[2019-01-31] VITALS (96 sets, daily range): BP systolic 96–144; BP diastolic 38–87
[2019-01-31] MEDS: METRONIDAZOLE 500 MG PREMIX 100 ML IV SCH ×4 (00:18→18:35)
[2019-01-31] MEDS: IPRATROPIUM/ALBUTEROL 0.5-3(2.5)MG/3ML NEB HHN SCH ×4 (01:32→20:47)
[2019-01-31] MEDS: DEXT 5%/0.45% NACL 1000ML 1,000 ML IV SCH ×3 (03:00→18:38)
[2019-01-31] MEDS: PIPERACILLIN/TAZ 3.375G PREMIX 50 ML IV SCH ×3 (03:51→20:09)
[2019-01-31 05:47] LABS: HEMOGLOBIN. 7.1 g/dL (12.0-16.0); MEAN CORPUSCULAR HEMOGLOBIN 30.3 pg (28.0-32.0); MEAN CORPUSCULAR VOLUME 88.8 fL (81.0-99.0); MEAN PLATELET VOLUME 8.4 fl (7.4-10.4); PLATELET 235 x1000/uL (130-400); RED BLOOD CELL COUNT 2.34 mill/uL (4.2-5.4); RED CELL DISTRIBUTION WIDTH 16.6 % (11.6-14.6)
[2019-01-31 05:50] LABS: CHLORIDE 109 mEq/L (98-107)
[2019-01-31 06:28] LABS: HEMATOCRIT. 20.8 % (36.0-48.0)
[2019-01-31 07:15] LABS: BG BASE EXCESS -6.6 mmol/L (-2.0-2.0); BG CARBOXYHEMOGLOBIN 0.3 % (0.5-1.5); BG DEOXYHEMOGLOBIN 1.8 % (0.0-5.0); BG HCO3 ACT 16.4 mmol/L (22.0-26.0); BG METHEMOGLOBIN 0.4 % (0.0-1.5); BG OXYGEN SATURATION 98.2 % (92.0-98.5); BG OXYHEMOGLOBIN 97.5 % (94.0-97.0); BG PCO2 23.5 mmHg (35.0-45.0); BG PH 7.462 (7.350-7.450); BG PO2 116.9 mmHg (75.0-100.0); BG SAMPLE SITE RIGHT RADIAL; BG TIDAL VOLUME(mL) 550 mL; BG VENT MODE VENT - A/C; BG VENT RATE 12 set
[2019-01-31] MEDS ORDERED: CLONIDINE HCL 0.2MG/24HR PATCH TD SCH (09:00)
[2019-01-31 09:06] LABS: PLATELET ESTIMATE NORMAL
[2019-01-31] MEDS: MIDAZOLAM HCL 100 MG in DEXT 5% WATER 80 ML IV PRN (16:28)
[2019-01-31 18:38] LABS: HEMATOCRIT 24.3 % (36.0-48.0); HEMOGLOBIN 8.3 g/dL (12.0-16.0); MEAN CORPUSCULAR HEMOGLOBIN 30.7 pg (28.0-32.0); MEAN CORPUSCULAR VOLUME 89.3 fL (81.0-99.0); PLATELET 238 x1000/uL (130-400); RED BLOOD CELL COUNT 2.72 mill/uL (4.2-5.4); RED CELL DISTRIBUTION WIDTH 16.5 % (11.6-14.6)
[2019-01-31 18:39] LABS: HEMOGLOBIN 8.3 g/dL (12.0-16.0)
[2019-01-31 18:46] LABS: INR 2.1; PARTIAL THROMBOPLASTIN TIME 36.6 sec (23.4-31.0); PROTHROMBIN TIME 20.5 sec (9.6-11.0)
[2019-01-31] MEDS: FAMOTIDINE 20MG/2ML VIAL IV SCH (20:09)
[2019-01-31] MEDS: PHYTONADIONE 10MG/ML AMP SUBCUT SCH (20:09)
[2019-02-01] VITALS (100 sets, daily range): BP systolic 108–159; BP diastolic 44–96
[2019-02-01] MEDS: METRONIDAZOLE 500 MG PREMIX 100 ML IV SCH ×4 (00:42→19:29)
[2019-02-01] MEDS: IPRATROPIUM/ALBUTEROL 0.5-3(2.5)MG/3ML NEB HHN SCH ×4 (00:50→19:57)
[2019-02-01] MEDS: AMIODARONE HCL 900 MG in DEXT 5% WATER 482 ML IV PRN (01:50)
[2019-02-01] MEDS: PIPERACILLIN/TAZ 3.375G PREMIX 50 ML IV SCH ×3 (03:15→20:04)
[2019-02-01 05:38] LABS: HEMATOCRIT 22.2 % (36.0-48.0); HEMOGLOBIN 7.6 g/dL (12.0-16.0)
[2019-02-01 06:03] LABS: INR 1.5; PROTHROMBIN TIME 14.9 sec (9.6-11.0)
[2019-02-01 07:37] LABS: BG BASE EXCESS -1.9 mmol/L (-2.0-2.0); BG CARBOXYHEMOGLOBIN 0.3 % (0.5-1.5); BG DEOXYHEMOGLOBIN 1.7 % (0.0-5.0); BG FRACTION INSPIRED OXYGEN 45; BG HCO3 ACT 21.3 mmol/L (22.0-26.0); BG METHEMOGLOBIN 0.5 % (0.0-1.5); BG OXYGEN SATURATION 98.3 % (92.0-98.5); BG OXYHEMOGLOBIN 97.5 % (94.0-97.0); BG PCO2 29.5 mmHg (35.0-45.0); BG PH 7.476 (7.350-7.450); BG PO2 119.3 mmHg (75.0-100.0); BG SAMPLE SITE RIGHT RADIAL; BG TIDAL VOLUME(mL) 550 mL; BG TOTAL HEMOGLOBIN 7.5 g/dL (12.0-18.0); BG VENT MODE VENT - A/C; BG VENT RATE 12 set
[2019-02-01] MEDS: DEXT 5%/0.45% NACL 1000ML 1,000 ML IV SCH (09:23)
[2019-02-01] MEDS: PHYTONADIONE 10MG/ML AMP SUBCUT SCH (09:57)
[2019-02-01 11:03] LABS: CHLORIDE 109 mEq/L (98-107)
[2019-02-01 11:09] LABS: PHOSPHORUS 1.9 mg/dL (2.5-4.9)
[2019-02-01 11:56] LABS: HEMATOCRIT. 22.6 % (36.0-48.0); HEMOGLOBIN. 7.9 g/dL (12.0-16.0); MEAN CORPUSCULAR HEMOGLOBIN 31.5 pg (28.0-32.0); MEAN CORPUSCULAR VOLUME 90.2 fL (81.0-99.0); PLATELET 253 x1000/uL (130-400); RED BLOOD CELL COUNT 2.51 mill/uL (4.2-5.4); RED CELL DISTRIBUTION WIDTH 16.5 % (11.6-14.6)
[2019-02-01 12:41] LABS: PLATELET ESTIMATE NORMAL
[2019-02-01] MEDS ORDERED: IOHEXOL-300 50 ML BOTTLE IV ONE (13:02)
[2019-02-01] MEDS ORDERED: POTASSIUM CHLORIDE INJ 30 MEQ in DEXT 5% WATER 235 ML IV NR ×2 (15:30→19:30)
[2019-02-01] MEDS: DEXT 5%/0.45% NACL KCL 20MEQ/L 1,000 ML IV SCH (16:07)
[2019-02-01] MEDS: FAMOTIDINE 20MG/2ML VIAL IV SCH (20:04)
[2019-02-02] VITALS (94 sets, daily range): BP systolic 115–173; BP diastolic 50–97
[2019-02-02] MEDS: METRONIDAZOLE 500 MG PREMIX 100 ML IV SCH ×4 (00:49→18:49)
[2019-02-02] MEDS: DEXT 5%/0.45% NACL KCL 20MEQ/L 1,000 ML IV SCH ×3 (00:49→20:19)
[2019-02-02] MEDS: IPRATROPIUM/ALBUTEROL 0.5-3(2.5)MG/3ML NEB HHN SCH ×4 (02:19→20:01)
[2019-02-02] MEDS: PIPERACILLIN/TAZ 3.375G PREMIX 50 ML IV SCH ×3 (03:52→20:19)
[2019-02-02] MEDS: AMIODARONE HCL 900 MG in DEXT 5% WATER 482 ML IV PRN (03:53)
[2019-02-02 05:48] LABS: BASOPHILS % 0.3 % (0.0-2.0); EOSINOPHILS % 0.6 % (0.0-5.0); HEMATOCRIT. 25.2 % (36.0-48.0); HEMOGLOBIN. 8.6 g/dL (12.0-16.0); LYMPHOCYTES % 7.9 % (20.0-50.0); MEAN CORPUSCULAR HEMOGLOBIN 30.9 pg (28.0-32.0); MEAN PLATELET VOLUME 7.7 fl (7.4-10.4); MONOCYTES % 7.3 % (2.0-8.0); NEUTROPHILS % 83.9 % (40.0-76.0); PLATELET 297 x1000/uL (130-400); RED BLOOD CELL COUNT 2.77 mill/uL (4.2-5.4); RED CELL DISTRIBUTION WIDTH 16.5 % (11.6-14.6)
[2019-02-02 06:06] LABS: CHLORIDE 109 mEq/L (98-107)
[2019-02-02 07:48] LABS: BG BASE EXCESS -3.4 mmol/L (-2.0-2.0); BG CARBOXYHEMOGLOBIN 0.2 % (0.5-1.5); BG DEOXYHEMOGLOBIN 2.2 % (0.0-5.0); BG HCO3 ACT 19.1 mmol/L (22.0-26.0); BG METHEMOGLOBIN 0.1 % (0.0-1.5); BG OXYGEN SATURATION 97.8 % (92.0-98.5); BG OXYHEMOGLOBIN 97.5 % (94.0-97.0); BG PCO2 26.5 mmHg (35.0-45.0); BG PH 7.475 (7.350-7.450); BG PO2 106.2 mmHg (75.0-100.0); BG SAMPLE SITE RIGHT RADIAL; BG TIDAL VOLUME(mL) 500 mL; BG TOTAL HEMOGLOBIN 10.8 g/dL (12.0-18.0); BG VENT MODE VENT - A/C; BG VENT RATE 12 set
[2019-02-02] MEDS: PHYTONADIONE 10MG/ML AMP SUBCUT SCH (09:38)
[2019-02-02] MEDS ORDERED: POTASSIUM CHLORIDE 20MEQ/PACKET NG SCH (11:30)
[2019-02-02] MEDS: FAMOTIDINE 20MG/2ML VIAL IV SCH (20:19)
[2019-02-03] VITALS (102 sets, daily range): BP systolic 98–200; BP diastolic 41–96
[2019-02-03] MEDS: ACETAMINOPHEN 650MG/20.3ML UDC NG PRN ×2 (00:18→22:11)
[2019-02-03] MEDS: METRONIDAZOLE 500 MG PREMIX 100 ML IV SCH ×4 (00:18→18:30)
[2019-02-03] MEDS: IPRATROPIUM/ALBUTEROL 0.5-3(2.5)MG/3ML NEB HHN SCH ×3 (01:44→20:04)
[2019-02-03] MEDS: PIPERACILLIN/TAZ 3.375G PREMIX 50 ML IV SCH ×3 (04:30→20:15)
[2019-02-03 05:27] LABS: BASOPHILS % 0.2 % (0.0-2.0); EOSINOPHILS % 0.6 % (0.0-5.0); HEMATOCRIT. 23.7 % (36.0-48.0); LYMPHOCYTES % 8.5 % (20.0-50.0); MEAN CORPUSCULAR HEMOGLOBIN 30.8 pg (28.0-32.0); MEAN CORPUSCULAR VOLUME 91.8 fL (81.0-99.0); MEAN PLATELET VOLUME 7.5 fl (7.4-10.4); MONOCYTES % 9.1 % (2.0-8.0); NEUTROPHILS % 81.6 % (40.0-76.0); PLATELET 305 x1000/uL (130-400); RED BLOOD CELL COUNT 2.59 mill/uL (4.2-5.4); RED CELL DISTRIBUTION WIDTH 16.7 % (11.6-14.6)
[2019-02-03 05:31] LABS: CHLORIDE 111 mEq/L (98-107)
[2019-02-03 05:50] LABS: INR 1.3; PARTIAL THROMBOPLASTIN TIME 28.9 sec (23.4-31.0)
[2019-02-03] MEDS: DEXT 5%/0.45% NACL KCL 20MEQ/L 1,000 ML IV SCH ×2 (06:15→17:38)
[2019-02-03] MEDS: PHYTONADIONE 10MG/ML AMP SUBCUT SCH (08:52)
[2019-02-03] MEDS ORDERED: POTASSIUM CHLORIDE INJ 40 MEQ in DEXT 5% WATER 250 ML IV NR (09:00)
[2019-02-03] MEDS ORDERED: BACTERIOSTATIC SODIUM CHLORIDE 0.9% 30ML VIAL IJ ONE (10:52)
[2019-02-03] MEDS: AMIODARONE HCL 900 MG in DEXT 5% WATER 482 ML IV PRN (11:19)
[2019-02-03 12:00] LABS: INR 1.3; PROTHROMBIN TIME 12.9 sec (9.6-11.0)
[2019-02-03] MEDS ORDERED: FENTANYL CITRATE/PF 50MCG/ML 2ML VIAL ONE (13:51)
[2019-02-03] MEDS ORDERED: MIDAZOLAM HCL 5 MG/5 ML VIAL ONE (13:51)
[2019-02-03] MEDS ORDERED: FENTANYL CITRATE/PF 50MCG/ML 2ML VIAL IV PRN (14:12)
[2019-02-03] MEDS ORDERED: MIDAZOLAM HCL 5 MG/5 ML VIAL IV PRN (14:13)
[2019-02-03] MEDS: METOCLOPRAMIDE HCL 10MG/2ML VIAL IV SCH ×2 (17:38→23:24)
[2019-02-03] MEDS: SUCRALFATE 1 G/10 ML UDC GT SCH ×2 (17:38→23:24)
[2019-02-03] MEDS: FAMOTIDINE 20MG/2ML VIAL IV SCH (20:15)
[2019-02-04] VITALS (88 sets, daily range): BP systolic 102–181; BP diastolic 43–116
[2019-02-04] MEDS: METRONIDAZOLE 500 MG PREMIX 100 ML IV SCH ×4 (00:34→18:15)
[2019-02-04] MEDS: DEXT 5%/0.45% NACL KCL 20MEQ/L 1,000 ML IV SCH ×3 (02:04→22:59)
[2019-02-04] MEDS: IPRATROPIUM/ALBUTEROL 0.5-3(2.5)MG/3ML NEB HHN SCH ×4 (02:13→20:11)
[2019-02-04] MEDS: PIPERACILLIN/TAZ 3.375G PREMIX 50 ML IV SCH ×3 (03:12→20:20)
[2019-02-04] MEDS: METOCLOPRAMIDE HCL 10MG/2ML VIAL IV SCH ×4 (06:24→23:39)
[2019-02-04] MEDS: SUCRALFATE 1 G/10 ML UDC GT SCH ×4 (06:24→23:38)
[2019-02-04] MEDS: ACETAMINOPHEN 650MG/20.3ML UDC NG PRN ×2 (08:47→16:10)
[2019-02-04] MEDS ORDERED: MAGNESIUM 2 G PREMIX 50 ML IV NR (09:00)
[2019-02-04] MEDS: PANTOPRAZOLE SODIUM 40 MG/VIAL IV SCH ×2 (09:09→20:20)
[2019-02-04] MEDS: AMIODARONE HCL 200 MG TABLET PEG SCH ×2 (09:10→20:19)
[2019-02-04 13:14] LABS: INR 1.3; PROTHROMBIN TIME 13.2 sec (9.6-11.0)
[2019-02-05] VITALS (91 sets, daily range): BP systolic 104–184; BP diastolic 46–119
[2019-02-05] MEDS: METRONIDAZOLE 500 MG PREMIX 100 ML IV SCH ×3 (00:34→13:42)
[2019-02-05] MEDS: IPRATROPIUM/ALBUTEROL 0.5-3(2.5)MG/3ML NEB HHN SCH ×2 (01:22→08:02)
[2019-02-05] MEDS: PIPERACILLIN/TAZ 3.375G PREMIX 50 ML IV SCH ×2 (04:03→12:36)
[2019-02-05 05:18] LABS: INR 1.2; PROTHROMBIN TIME 12.4 sec (9.6-11.0)
[2019-02-05 05:21] LABS: BASOPHILS % 0.4 % (0.0-2.0); EOSINOPHILS % 0.8 % (0.0-5.0); HEMATOCRIT. 27.8 % (36.0-48.0); HEMOGLOBIN. 9.4 g/dL (12.0-16.0); LYMPHOCYTES % 9.7 % (20.0-50.0); MEAN CORPUSCULAR VOLUME 92.2 fL (81.0-99.0); MEAN PLATELET VOLUME 7.5 fl (7.4-10.4); MONOCYTES % 6.5 % (2.0-8.0); NEUTROPHILS % 82.6 % (40.0-76.0); PLATELET 354 x1000/uL (130-400); RED BLOOD CELL COUNT 3.02 mill/uL (4.2-5.4); RED CELL DISTRIBUTION WIDTH 17.2 % (11.6-14.6)
[2019-02-05 05:23] LABS: CHLORIDE 108 mEq/L (98-107)
[2019-02-05] MEDS: SUCRALFATE 1 G/10 ML UDC GT SCH ×3 (05:30→17:24)
[2019-02-05 05:31] LABS: PHOSPHORUS 1.4 mg/dL (2.5-4.9)
[2019-02-05] MEDS: METOCLOPRAMIDE HCL 10MG/2ML VIAL IV SCH ×3 (05:31→17:24)
[2019-02-05] MEDS: AMIODARONE HCL 200 MG TABLET PEG SCH (09:16)
[2019-02-05] MEDS: PANTOPRAZOLE SODIUM 40 MG/VIAL IV SCH ×2 (09:16→21:41)
[2019-02-05] MEDS ORDERED: FUROSEMIDE 40MG/4ML VIAL IVP NR (10:10)
[2019-02-05] MEDS ORDERED: MAGNESIUM 2 G PREMIX 50 ML IV ONE (10:30)
[2019-02-05] MEDS ORDERED: POTASSIUM PHOS,M-BASIC-D-BASIC 20 MMOL in DEXT 5% WATER 243.3333 ML IV SCH (10:30)
[2019-02-05] MEDS ORDERED: MAGNESIUM 1 G PREMIX 100 ML IV SCH (11:15)
[2019-02-05] MEDS ORDERED: POTASSIUM CHLORIDE 20MEQ TABLET SR PO SCH (11:15)
[2019-02-05] MEDS: DILTIAZEM HCL 60MG TABLET PO SCH ×2 (11:53→17:26)
[2019-02-05] MEDS ORDERED: POTASSIUM CHLORIDE 20MEQ/PACKET PO NR (12:45)
[2019-02-05] MEDS: ACETAMINOPHEN 650MG/20.3ML UDC NG PRN (13:28)
[2019-02-05] MEDS: IPRATROPIUM/ALBUTEROL 0.5-3(2.5)MG/3ML NEB INH PRN (14:25)
[2019-02-05] MEDS: IPRATROPIUM BROMIDE (0.02%) 0.5MG/2.5ML NEB HHN SCH ×2 (14:25→19:49)
[2019-02-05] MEDS: DEXT 5%/0.45% NACL KCL 20MEQ/L 1,000 ML IV SCH (15:31)
[2019-02-06] VITALS (61 sets, daily range): BP systolic 103–163; BP diastolic 49–103
[2019-02-06] MEDS: SUCRALFATE 1 G/10 ML UDC GT SCH ×5 (00:27→23:25)
[2019-02-06] MEDS: DILTIAZEM HCL 60MG TABLET PO SCH ×5 (00:28→23:27)
[2019-02-06] MEDS: METOCLOPRAMIDE HCL 10MG/2ML VIAL IV SCH ×5 (00:28→23:26)
[2019-02-06] MEDS: DEXT 5%/0.45% NACL KCL 20MEQ/L 1,000 ML IV SCH ×3 (01:00→20:43)
[2019-02-06] MEDS: IPRATROPIUM BROMIDE (0.02%) 0.5MG/2.5ML NEB HHN SCH ×4 (02:01→20:08)
[2019-02-06 05:14] LABS: BASOPHILS % 0.4 % (0.0-2.0); EOSINOPHILS % 1.2 % (0.0-5.0); HEMATOCRIT. 26.1 % (36.0-48.0); HEMOGLOBIN. 8.9 g/dL (12.0-16.0); LYMPHOCYTES % 10.3 % (20.0-50.0); MEAN CORPUSCULAR VOLUME 93.3 fL (81.0-99.0); MEAN PLATELET VOLUME 7.3 fl (7.4-10.4); MONOCYTES % 5.6 % (2.0-8.0); NEUTROPHILS % 82.5 % (40.0-76.0); PLATELET 317 x1000/uL (130-400); RED CELL DISTRIBUTION WIDTH 17.5 % (11.6-14.6)
[2019-02-06 05:33] LABS: CHLORIDE 108 mEq/L (98-107)
[2019-02-06 05:41] LABS: PHOSPHORUS 2.1 mg/dL (2.5-4.9)
[2019-02-06 08:32] LABS: BG BASE EXCESS -0.3 mmol/L (-2.0-2.0); BG CARBOXYHEMOGLOBIN 0.2 % (0.5-1.5); BG FRACTION INSPIRED OXYGEN 35; BG HCO3 ACT 22.1 mmol/L (22.0-26.0); BG METHEMOGLOBIN 0.3 % (0.0-1.5); BG OXYHEMOGLOBIN 97.5 % (94.0-97.0); BG PCO2 28.3 mmHg (35.0-45.0); BG PO2 109.5 mmHg (75.0-100.0); BG SAMPLE SITE RIGHT RADIAL; BG TIDAL VOLUME(mL) 500 mL; BG TOTAL HEMOGLOBIN 9.4 g/dL (12.0-18.0); BG VENT MODE VENT - A/C; BG VENT RATE 12 set
[2019-02-06] MEDS: PANTOPRAZOLE SODIUM 40 MG/VIAL IV SCH ×2 (09:28→20:43)
[2019-02-07] VITALS (54 sets, daily range): BP systolic 107–178; BP diastolic 35–107
[2019-02-07] MEDS: IPRATROPIUM BROMIDE (0.02%) 0.5MG/2.5ML NEB HHN SCH ×4 (00:18→19:51)
[2019-02-07] MEDS: ACETAMINOPHEN 650MG/20.3ML UDC NG PRN (00:43)
[2019-02-07 04:50] LABS: BASOPHILS % 0.1 % (0.0-2.0); EOSINOPHILS % 1.6 % (0.0-5.0); HEMATOCRIT. 27.3 % (36.0-48.0); LYMPHOCYTES % 10.9 % (20.0-50.0); MEAN CORPUSCULAR HEMOGLOBIN 30.9 pg (28.0-32.0); MEAN CORPUSCULAR VOLUME 93.8 fL (81.0-99.0); MEAN PLATELET VOLUME 7.3 fl (7.4-10.4); MONOCYTES % 5.7 % (2.0-8.0); NEUTROPHILS % 81.7 % (40.0-76.0); PLATELET 327 x1000/uL (130-400); RED BLOOD CELL COUNT 2.91 mill/uL (4.2-5.4); RED CELL DISTRIBUTION WIDTH 17.8 % (11.6-14.6)
[2019-02-07 04:57] LABS: CHLORIDE 106 mEq/L (98-107)
[2019-02-07 05:02] LABS: PHOSPHORUS 2.2 mg/dL (2.5-4.9)
[2019-02-07] MEDS: SUCRALFATE 1 G/10 ML UDC GT SCH ×4 (05:48→23:42)
[2019-02-07] MEDS: METOCLOPRAMIDE HCL 10MG/2ML VIAL IV SCH ×4 (05:49→23:45)
[2019-02-07] MEDS: DILTIAZEM HCL 60MG TABLET PO SCH ×4 (05:49→23:45)
[2019-02-07] MEDS: DEXT 5%/0.45% NACL KCL 20MEQ/L 1,000 ML IV SCH ×3 (06:49→20:15)
[2019-02-07 08:24] LABS: BG BASE EXCESS -0.5 mmol/L (-2.0-2.0); BG CARBOXYHEMOGLOBIN 0.3 % (0.5-1.5); BG DEOXYHEMOGLOBIN 1.7 % (0.0-5.0); BG FRACTION INSPIRED OXYGEN 35; BG HCO3 ACT 22.4 mmol/L (22.0-26.0); BG METHEMOGLOBIN 0.2 % (0.0-1.5); BG OXYGEN SATURATION 98.3 % (92.0-98.5); BG OXYHEMOGLOBIN 97.8 % (94.0-97.0); BG PCO2 30.4 mmHg (35.0-45.0); BG PH 7.485 (7.350-7.450); BG PO2 120.1 mmHg (75.0-100.0); BG SAMPLE SITE RIGHT RADIAL; BG TIDAL VOLUME(mL) 500 mL; BG TOTAL HEMOGLOBIN 9.8 g/dL (12.0-18.0); BG VENT MODE VENT - A/C; BG VENT RATE 12 set
[2019-02-07] MEDS: PANTOPRAZOLE SODIUM 40 MG/VIAL IV SCH ×2 (08:24→21:04)
[2019-02-08] VITALS (44 sets, daily range): BP systolic 116–177; BP diastolic 54–87
[2019-02-08] MEDS: IPRATROPIUM BROMIDE (0.02%) 0.5MG/2.5ML NEB HHN SCH ×4 (01:59→19:55)
[2019-02-08] MEDS: DEXT 5%/0.45% NACL KCL 20MEQ/L 1,000 ML IV SCH ×2 (02:57→13:48)
[2019-02-08 05:19] LABS: INR 1.2; PROTHROMBIN TIME 11.8 sec (9.6-11.0)
[2019-02-08 05:23] LABS: BASOPHILS % 0.2 % (0.0-2.0); EOSINOPHILS % 2.1 % (0.0-5.0); HEMATOCRIT. 28.3 % (36.0-48.0); HEMOGLOBIN. 9.4 g/dL (12.0-16.0); LYMPHOCYTES % 12.9 % (20.0-50.0); MEAN CORPUSCULAR HEMOGLOBIN 31.2 pg (28.0-32.0); MEAN PLATELET VOLUME 7.3 fl (7.4-10.4); MONOCYTES % 6.5 % (2.0-8.0); NEUTROPHILS % 78.3 % (40.0-76.0); PLATELET 386 x1000/uL (130-400); RED BLOOD CELL COUNT 3.01 mill/uL (4.2-5.4); RED CELL DISTRIBUTION WIDTH 18.1 % (11.6-14.6)
[2019-02-08] MEDS: METOCLOPRAMIDE HCL 10MG/2ML VIAL IV SCH ×4 (05:27→23:40)
[2019-02-08] MEDS: SUCRALFATE 1 G/10 ML UDC GT SCH ×5 (05:27→23:40)
[2019-02-08] MEDS: DILTIAZEM HCL 60MG TABLET PO SCH ×5 (05:27→23:41)
[2019-02-08 05:37] LABS: CHLORIDE 106 mEq/L (98-107)
[2019-02-08 05:47] LABS: PHOSPHORUS 2.9 mg/dL (2.5-4.9)
[2019-02-08] MEDS: PANTOPRAZOLE SODIUM 40 MG/VIAL IV SCH ×2 (10:25→21:15)
[2019-02-08] MEDS ORDERED: ROCURONIUM BROMIDE 10MG/ML VIAL 5ML IV ONE (16:42)
[2019-02-08] MEDS ORDERED: FENTANYL CITRATE/PF 50MCG/ML 2ML VIAL ONE (16:42)
[2019-02-08] MEDS ORDERED: MIDAZOLAM HCL 2 MG/2 ML VIAL ONE (16:42)
[2019-02-09] VITALS (76 sets, daily range): BP systolic 103–174; BP diastolic 45–92
[2019-02-09] MEDS: DEXT 5%/0.45% NACL KCL 20MEQ/L 1,000 ML IV SCH ×2 (01:41→14:13)
[2019-02-09] MEDS: IPRATROPIUM BROMIDE (0.02%) 0.5MG/2.5ML NEB HHN SCH ×4 (02:10→20:27)
[2019-02-09] MEDS: METOCLOPRAMIDE HCL 10MG/2ML VIAL IV SCH ×3 (05:57→18:52)
[2019-02-09] MEDS: SUCRALFATE 1 G/10 ML UDC GT SCH ×3 (05:57→18:52)
[2019-02-09] MEDS: DILTIAZEM HCL 60MG TABLET PO SCH ×3 (05:58→18:52)
[2019-02-09] MEDS: PANTOPRAZOLE SODIUM 40 MG/VIAL IV SCH ×2 (08:43→20:59)
[2019-02-09] MEDS: AMIODARONE HCL 900 MG in DEXT 5% WATER 482 ML IV PRN (08:43)
[2019-02-09 14:17] LABS: CHLORIDE 106 mEq/L (98-107)
[2019-02-09] MEDS ORDERED: MAGNESIUM 2 G PREMIX 50 ML IV NR (15:30)
[2019-02-09] MEDS: AMIODARONE HCL 200 MG TABLET PO SCH ×2 (15:32→21:07)
[2019-02-10] VITALS (79 sets, daily range): BP systolic 104–156; BP diastolic 40–118
[2019-02-10] MEDS: DEXT 5%/0.45% NACL KCL 20MEQ/L 1,000 ML IV SCH ×3 (00:44→18:59)
[2019-02-10] MEDS: SUCRALFATE 1 G/10 ML UDC GT SCH ×4 (00:47→17:30)
[2019-02-10] MEDS: METOCLOPRAMIDE HCL 10MG/2ML VIAL IV SCH ×4 (00:47→17:30)
[2019-02-10] MEDS: DILTIAZEM HCL 60MG TABLET PO SCH ×4 (00:48→17:31)
[2019-02-10] MEDS: IPRATROPIUM BROMIDE (0.02%) 0.5MG/2.5ML NEB HHN SCH ×4 (02:28→20:25)
[2019-02-10] MEDS: AMIODARONE HCL 200 MG TABLET PO SCH ×3 (05:12→22:02)
[2019-02-10 05:13] LABS: BASOPHILS % 0.6 % (0.0-2.0); EOSINOPHILS % 2.2 % (0.0-5.0); HEMOGLOBIN. 9.1 g/dL (12.0-16.0); LYMPHOCYTES % 12.6 % (20.0-50.0); MEAN CORPUSCULAR HEMOGLOBIN 31.5 pg (28.0-32.0); MEAN CORPUSCULAR VOLUME 93.3 fL (81.0-99.0); MEAN PLATELET VOLUME 7.4 fl (7.4-10.4); MONOCYTES % 7.2 % (2.0-8.0); NEUTROPHILS % 77.4 % (40.0-76.0); PLATELET 393 x1000/uL (130-400)
[2019-02-10 05:33] LABS: CHLORIDE 105 mEq/L (98-107)
[2019-02-10] MEDS: PANTOPRAZOLE SODIUM 40 MG/VIAL IV SCH ×2 (08:19→22:01)
[2019-02-10] MEDS: AMIODARONE HCL 900 MG in DEXT 5% WATER 482 ML IV PRN (09:00)
[2019-02-10] MEDS ORDERED: AMIODARONE HCL 50MG/ML 9ML VIAL IV ONE (10:15)
[2019-02-10] MEDS ORDERED: POTASSIUM CHLORIDE 20MEQ TABLET SR PO NR (16:26)
[2019-02-10] MEDS ORDERED: POTASSIUM CHLORIDE 20MEQ/PACKET NG SCH (16:45)
[2019-02-11] VITALS (24 sets, daily range): BP systolic 113–160; BP diastolic 47–82
[2019-02-11] MEDS: DILTIAZEM HCL 60MG TABLET PO SCH ×5 (00:41→23:51)
[2019-02-11] MEDS: SUCRALFATE 1 G/10 ML UDC GT SCH ×5 (00:41→23:52)
[2019-02-11] MEDS: METOCLOPRAMIDE HCL 10MG/2ML VIAL IV SCH ×5 (00:42→23:52)
[2019-02-11] MEDS: IPRATROPIUM BROMIDE (0.02%) 0.5MG/2.5ML NEB HHN SCH ×4 (02:11→20:10)
[2019-02-11 05:40] LABS: BASOPHILS % 0.4 % (0.0-2.0); EOSINOPHILS % 2.1 % (0.0-5.0); HEMATOCRIT. 27.3 % (36.0-48.0); HEMOGLOBIN. 9.2 g/dL (12.0-16.0); LYMPHOCYTES % 11.8 % (20.0-50.0); MEAN CORPUSCULAR HEMOGLOBIN 31.4 pg (28.0-32.0); MEAN CORPUSCULAR VOLUME 93.3 fL (81.0-99.0); MEAN PLATELET VOLUME 7.2 fl (7.4-10.4); MONOCYTES % 6.6 % (2.0-8.0); NEUTROPHILS % 79.1 % (40.0-76.0); PLATELET 413 x1000/uL (130-400); RED BLOOD CELL COUNT 2.93 mill/uL (4.2-5.4); RED CELL DISTRIBUTION WIDTH 17.6 % (11.6-14.6)
[2019-02-11 05:45] LABS: CHLORIDE 106 mEq/L (98-107)
[2019-02-11] MEDS: AMIODARONE HCL 200 MG TABLET PO SCH ×3 (06:30→21:24)
[2019-02-11] MEDS: PANTOPRAZOLE SODIUM 40 MG/VIAL IV SCH ×2 (08:22→21:24)
[2019-02-11] MEDS: ACETAMINOPHEN 650MG/20.3ML UDC NG PRN ×2 (14:16→21:25)
[2019-02-11] MEDS: DEXT 5%/0.45% NACL KCL 20MEQ/L 1,000 ML IV SCH (19:51)
[2019-02-12] VITALS (12 sets, daily range): BP systolic 119–153; BP diastolic 48–70
[2019-02-12] MEDS: DEXT 5%/0.45% NACL KCL 20MEQ/L 1,000 ML IV SCH ×3 (00:15→22:09)
[2019-02-12] MEDS: IPRATROPIUM BROMIDE (0.02%) 0.5MG/2.5ML NEB HHN SCH ×5 (01:48→19:57)
[2019-02-12] MEDS: AMIODARONE HCL 200 MG TABLET PO SCH ×3 (06:03→22:09)
[2019-02-12] MEDS: DILTIAZEM HCL 60MG TABLET PO SCH ×4 (06:04→23:20)
[2019-02-12] MEDS: SUCRALFATE 1 G/10 ML UDC GT SCH ×4 (06:04→23:20)
[2019-02-12] MEDS: METOCLOPRAMIDE HCL 10MG/2ML VIAL IV SCH ×4 (06:04→23:19)
[2019-02-12] MEDS: PANTOPRAZOLE SODIUM 40 MG/VIAL IV SCH ×2 (09:15→22:09)
[2019-02-12] MEDS: NYSTATIN POWDER 15GM TOP SCH ×2 (14:44→18:26)
[2019-02-12] MEDS: ACETAMINOPHEN 650MG/20.3ML UDC NG PRN (15:15)
[2019-02-13] VITALS (11 sets, daily range): BP systolic 107–158; BP diastolic 48–78
[2019-02-13] MEDS: IPRATROPIUM BROMIDE (0.02%) 0.5MG/2.5ML NEB HHN SCH ×3 (01:56→19:33)
[2019-02-13] MEDS: DEXT 5%/0.45% NACL KCL 20MEQ/L 1,000 ML IV SCH ×2 (05:26→16:44)
[2019-02-13] MEDS: DILTIAZEM HCL 60MG TABLET PO SCH ×3 (06:35→16:45)
[2019-02-13] MEDS: SUCRALFATE 1 G/10 ML UDC GT SCH ×3 (06:35→16:45)
[2019-02-13] MEDS: METOCLOPRAMIDE HCL 10MG/2ML VIAL IV SCH ×3 (06:35→16:45)
[2019-02-13] MEDS: AMIODARONE HCL 200 MG TABLET PO SCH ×3 (06:40→20:24)
[2019-02-13] MEDS: PANTOPRAZOLE SODIUM 40 MG/VIAL IV SCH ×2 (11:29→20:24)
[2019-02-13] MEDS: NYSTATIN POWDER 15GM TOP SCH ×2 (11:29→16:45)
[2019-02-14] VITALS (11 sets, daily range): BP systolic 129–151; BP diastolic 54–83
[2019-02-14] MEDS: IPRATROPIUM/ALBUTEROL 0.5-3(2.5)MG/3ML NEB INH PRN (00:37)
[2019-02-14] MEDS: SUCRALFATE 1 G/10 ML UDC GT SCH ×4 (00:49→17:52)
[2019-02-14] MEDS: DILTIAZEM HCL 60MG TABLET PO SCH ×4 (00:49→17:53)
[2019-02-14] MEDS: METOCLOPRAMIDE HCL 10MG/2ML VIAL IV SCH ×4 (00:50→17:52)
[2019-02-14] MEDS: IPRATROPIUM BROMIDE (0.02%) 0.5MG/2.5ML NEB HHN SCH ×4 (01:48→20:28)
[2019-02-14] MEDS: DEXT 5%/0.45% NACL KCL 20MEQ/L 1,000 ML IV SCH ×3 (02:26→20:58)
[2019-02-14] MEDS: AMIODARONE HCL 200 MG TABLET PO SCH ×3 (06:08→20:57)
[2019-02-14] MEDS: NYSTATIN POWDER 15GM TOP SCH ×2 (09:08→16:47)
[2019-02-14] MEDS: PANTOPRAZOLE SODIUM 40 MG/VIAL IV SCH ×2 (09:09→20:59)
[2019-02-15] VITALS (13 sets, daily range): BP systolic 116–145; BP diastolic 53–69
[2019-02-15] MEDS: METOCLOPRAMIDE HCL 10MG/2ML VIAL IV SCH ×5 (00:18→22:57)
[2019-02-15] MEDS: SUCRALFATE 1 G/10 ML UDC GT SCH ×5 (00:18→22:56)
[2019-02-15] MEDS: DILTIAZEM HCL 60MG TABLET PO SCH ×5 (00:19→22:56)
[2019-02-15] MEDS: IPRATROPIUM BROMIDE (0.02%) 0.5MG/2.5ML NEB HHN SCH ×4 (01:57→20:45)
[2019-02-15] MEDS: AMIODARONE HCL 200 MG TABLET PO SCH ×3 (05:13→20:54)
[2019-02-15 06:24] LABS: CHLORIDE 106 mEq/L (98-107)
[2019-02-15] MEDS: PANTOPRAZOLE SODIUM 40 MG/VIAL IV SCH ×2 (08:45→20:54)
[2019-02-15] MEDS: NYSTATIN POWDER 15GM TOP SCH ×2 (08:45→17:13)
[2019-02-15] MEDS: DEXT 5%/0.45% NACL KCL 20MEQ/L 1,000 ML IV SCH ×3 (08:45→21:33)
[2019-02-15] MEDS: NEOMY SULF/BACITRAC ZN/POLY OINT 28GM TOP SCH (20:55)
[2019-02-16] VITALS (11 sets, daily range): BP systolic 119–144; BP diastolic 53–69
[2019-02-16] MEDS: IPRATROPIUM BROMIDE (0.02%) 0.5MG/2.5ML NEB HHN SCH ×4 (01:48→20:56)
[2019-02-16] MEDS: DEXT 5%/0.45% NACL KCL 20MEQ/L 1,000 ML IV SCH ×2 (04:15→09:04)
[2019-02-16] MEDS: SUCRALFATE 1 G/10 ML UDC GT SCH ×3 (05:32→17:42)
[2019-02-16] MEDS: DILTIAZEM HCL 60MG TABLET PO SCH ×3 (05:32→17:42)
[2019-02-16] MEDS: METOCLOPRAMIDE HCL 10MG/2ML VIAL IV SCH ×3 (05:32→17:42)
[2019-02-16] MEDS: AMIODARONE HCL 200 MG TABLET PO SCH ×3 (05:35→21:50)
[2019-02-16] MEDS: NEOMY SULF/BACITRAC ZN/POLY OINT 28GM TOP SCH ×2 (09:00→21:50)
[2019-02-16] MEDS: PANTOPRAZOLE SODIUM 40 MG/VIAL IV SCH ×2 (09:00→21:50)
[2019-02-16] MEDS: NYSTATIN POWDER 15GM TOP SCH ×2 (09:03→17:42)
[2019-02-17] VITALS: BP 126/60
[2019-02-17] MEDS: METOCLOPRAMIDE HCL 10MG/2ML VIAL IV SCH ×4 (00:31→18:42)
[2019-02-17] MEDS: DEXT 5%/0.45% NACL KCL 20MEQ/L 1,000 ML IV SCH ×3 (00:31→20:47)
[2019-02-17] MEDS: SUCRALFATE 1 G/10 ML UDC GT SCH ×4 (00:31→18:42)
[2019-02-17] MEDS: DILTIAZEM HCL 60MG TABLET PO SCH ×4 (00:32→18:42)
[2019-02-17 02:00] VITALS: BP 133/57
[2019-02-17] MEDS: IPRATROPIUM BROMIDE (0.02%) 0.5MG/2.5ML NEB HHN SCH ×4 (02:05→20:49)
[2019-02-17 04:00] VITALS: BP 131/58
[2019-02-17 06:00] VITALS: BP 126/53
[2019-02-17] MEDS: AMIODARONE HCL 200 MG TABLET PO SCH ×3 (07:14→20:48)
[2019-02-17] MEDS: NYSTATIN POWDER 15GM TOP SCH ×2 (08:53→17:00)
[2019-02-17] MEDS: NEOMY SULF/BACITRAC ZN/POLY OINT 28GM TOP SCH ×2 (08:53→20:47)
[2019-02-17] MEDS: PANTOPRAZOLE SODIUM 40 MG/VIAL IV SCH ×2 (08:53→20:47)
[2019-02-17 20:00] VITALS: BP 133/60
[2019-02-17 22:00] VITALS: BP 141/60
[2019-02-18] VITALS (11 sets, daily range): BP systolic 111–145; BP diastolic 49–82
[2019-02-18] MEDS: DILTIAZEM HCL 60MG TABLET PO SCH ×4 (00:23→17:08)
[2019-02-18] MEDS: METOCLOPRAMIDE HCL 10MG/2ML VIAL IV SCH ×4 (00:23→17:07)
[2019-02-18] MEDS: SUCRALFATE 1 G/10 ML UDC GT SCH ×4 (00:23→17:07)
[2019-02-18] MEDS: IPRATROPIUM BROMIDE (0.02%) 0.5MG/2.5ML NEB HHN SCH ×3 (02:31→20:30)
[2019-02-18] MEDS: AMIODARONE HCL 200 MG TABLET PO SCH ×3 (05:36→20:22)
[2019-02-18] MEDS: DEXT 5%/0.45% NACL KCL 20MEQ/L 1,000 ML IV SCH ×2 (06:11→15:20)
[2019-02-18] MEDS: IPRATROPIUM/ALBUTEROL 0.5-3(2.5)MG/3ML NEB INH PRN (08:57)
[2019-02-18] MEDS: PANTOPRAZOLE SODIUM 40 MG/VIAL IV SCH ×2 (09:24→20:22)
[2019-02-18] MEDS: NEOMY SULF/BACITRAC ZN/POLY OINT 28GM TOP SCH ×2 (09:25→20:22)
[2019-02-18] MEDS: NYSTATIN POWDER 15GM TOP SCH ×2 (09:25→17:08)
[2019-02-19] VITALS (12 sets, daily range): BP systolic 122–156; BP diastolic 56–70
[2019-02-19] MEDS: DILTIAZEM HCL 60MG TABLET PO SCH ×4 (00:04→17:41)
[2019-02-19] MEDS: METOCLOPRAMIDE HCL 10MG/2ML VIAL IV SCH ×4 (00:04→17:41)
[2019-02-19] MEDS: SUCRALFATE 1 G/10 ML UDC GT SCH ×4 (00:04→17:41)
[2019-02-19] MEDS: DEXT 5%/0.45% NACL KCL 20MEQ/L 1,000 ML IV SCH ×3 (00:05→22:57)
[2019-02-19] MEDS: AMIODARONE HCL 200 MG TABLET PO SCH ×3 (05:28→22:57)
[2019-02-19] MEDS: IPRATROPIUM BROMIDE (0.02%) 0.5MG/2.5ML NEB HHN SCH ×3 (08:58→21:04)
[2019-02-19] MEDS: PANTOPRAZOLE SODIUM 40 MG/VIAL IV SCH ×2 (09:20→20:56)
[2019-02-19] MEDS: NYSTATIN POWDER 15GM TOP SCH ×2 (09:21→17:44)
[2019-02-19] MEDS: NEOMY SULF/BACITRAC ZN/POLY OINT 28GM TOP SCH ×2 (09:21→20:56)
[2019-02-19] MEDS: ACETAMINOPHEN 650MG/20.3ML UDC NG PRN ×2 (16:24→20:58)
[2019-02-20] VITALS (20 sets, daily range): BP systolic 112–149; BP diastolic 51–96
[2019-02-20] MEDS: METOCLOPRAMIDE HCL 10MG/2ML VIAL IV SCH ×5 (00:31→21:45)
[2019-02-20] MEDS: SUCRALFATE 1 G/10 ML UDC GT SCH ×4 (00:31→17:27)
[2019-02-20] MEDS: DILTIAZEM HCL 60MG TABLET PO SCH ×5 (00:33→21:46)
[2019-02-20] MEDS: IPRATROPIUM BROMIDE (0.02%) 0.5MG/2.5ML NEB HHN SCH ×4 (01:36→20:18)
[2019-02-20] MEDS: AMIODARONE HCL 200 MG TABLET PO SCH ×3 (05:58→21:51)
[2019-02-20] MEDS: NYSTATIN POWDER 15GM TOP SCH ×2 (09:11→17:26)
[2019-02-20] MEDS: PANTOPRAZOLE SODIUM 40 MG/VIAL IV SCH ×2 (09:11→21:45)
[2019-02-20] MEDS: NEOMY SULF/BACITRAC ZN/POLY OINT 28GM TOP SCH ×2 (09:11→21:48)
[2019-02-20] MEDS: DEXT 5%/0.45% NACL KCL 20MEQ/L 1,000 ML IV SCH ×2 (13:46→21:54)
[2019-02-20] MEDS: ACETAMINOPHEN 650MG/20.3ML UDC NG PRN (13:46)
[2019-02-21] VITALS (16 sets, daily range): BP systolic 113–154; BP diastolic 51–80
[2019-02-21] MEDS: SUCRALFATE 1 G/10 ML UDC GT SCH ×4 (01:03→17:51)
[2019-02-21] MEDS: IPRATROPIUM BROMIDE (0.02%) 0.5MG/2.5ML NEB HHN SCH ×4 (01:40→20:33)
[2019-02-21] MEDS: METOCLOPRAMIDE HCL 10MG/2ML VIAL IV SCH ×3 (06:29→17:51)
[2019-02-21] MEDS: DILTIAZEM HCL 60MG TABLET PO SCH ×3 (06:30→17:51)
[2019-02-21] MEDS: AMIODARONE HCL 200 MG TABLET PO SCH ×3 (06:31→21:21)
[2019-02-21] MEDS: PANTOPRAZOLE SODIUM 40 MG/VIAL IV SCH ×2 (09:04→21:16)
[2019-02-21] MEDS: NEOMY SULF/BACITRAC ZN/POLY OINT 28GM TOP SCH ×2 (09:05→21:17)
[2019-02-21] MEDS: NYSTATIN POWDER 15GM TOP SCH ×2 (09:05→17:52)
[2019-02-21] MEDS: ACETAMINOPHEN 650MG/20.3ML UDC NG PRN (11:58)
[2019-02-21] MEDS: DEXT 5%/0.45% NACL KCL 20MEQ/L 1,000 ML IV SCH ×2 (12:09→21:18)
[2019-02-22] VITALS (10 sets, daily range): BP systolic 123–162; BP diastolic 54–74
[2019-02-22] MEDS: METOCLOPRAMIDE HCL 10MG/2ML VIAL IV SCH ×4 (00:51→17:41)
[2019-02-22] MEDS: DILTIAZEM HCL 60MG TABLET PO SCH ×4 (00:51→17:41)
[2019-02-22] MEDS: SUCRALFATE 1 G/10 ML UDC GT SCH ×4 (00:51→17:41)
[2019-02-22] MEDS: IPRATROPIUM BROMIDE (0.02%) 0.5MG/2.5ML NEB HHN SCH ×4 (01:45→20:14)
[2019-02-22] MEDS: AMIODARONE HCL 200 MG TABLET PO SCH ×3 (05:18→21:12)
[2019-02-22] MEDS: DEXT 5%/0.45% NACL KCL 20MEQ/L 1,000 ML IV SCH ×2 (07:33→17:41)
[2019-02-22] MEDS: PANTOPRAZOLE SODIUM 40 MG/VIAL IV SCH ×2 (08:27→20:55)
[2019-02-22] MEDS: NYSTATIN POWDER 15GM TOP SCH ×2 (08:28→17:42)
[2019-02-22] MEDS: NEOMY SULF/BACITRAC ZN/POLY OINT 28GM TOP SCH (08:28)
[2019-02-23] VITALS (15 sets, daily range): BP systolic 116–150; BP diastolic 51–66
[2019-02-23] MEDS: IPRATROPIUM BROMIDE (0.02%) 0.5MG/2.5ML NEB HHN SCH ×4 (00:40→14:03)
[2019-02-23] MEDS: SUCRALFATE 1 G/10 ML UDC GT SCH ×4 (02:27→17:19)
[2019-02-23] MEDS: METOCLOPRAMIDE HCL 10MG/2ML VIAL IV SCH ×4 (02:27→17:19)
[2019-02-23] MEDS: DILTIAZEM HCL 60MG TABLET PO SCH ×4 (02:27→17:20)
[2019-02-23] MEDS: DEXT 5%/0.45% NACL KCL 20MEQ/L 1,000 ML IV SCH ×2 (04:18→15:41)
[2019-02-23] MEDS: AMIODARONE HCL 200 MG TABLET PO SCH ×2 (06:22→15:41)
[2019-02-23] MEDS: PANTOPRAZOLE SODIUM 40 MG/VIAL IV SCH (08:35)
[2019-02-23] MEDS: NYSTATIN POWDER 15GM TOP SCH ×2 (08:35→17:20)
[2019-02-23] MEDS ORDERED: IPRATROPIUM/ALBUTEROL 0.5-3(2.5)MG/3ML NEB HHN PRN (14:00)
== END 2019-02-23 20:15 | disposition short-term general hospital (02) | DRG 3 ==
LOC: ER 08:14 → OR 12:45 → CVICU 12:46 → 3WST 01-27 13:32 → MICUSO 01-28 19:47 → 5EST 02-11 10:08
PROVIDERS: ADMIT Internal Medicine; ATTEND Internal Medicine
PROC: 0DTJ0ZZ Resection of Appendix, Open Approach (ICD-10-PCS; principal; 2019-01-21)
PROC: 0DBF0ZZ Excision of Right Large Intestine, Open Approach (ICD-10-PCS; 2019-01-21)
PROC: 0WJG4ZZ Inspection of Peritoneal Cavity, Percutaneous Endoscopic Approach (ICD-10-PCS; 2019-01-21)
PROC: 5A1945Z Respiratory Ventilation, 24-96 Consecutive Hours (ICD-10-PCS; 2019-01-21)
PROC: 02HV33Z Insertion of Infusion Device into Superior Vena Cava, Percutaneous Approach (ICD-10-PCS; 2019-01-22)
PROC: B548ZZA Ultrasonography of Superior Vena Cava, Guidance (ICD-10-PCS; 2019-01-22)
PROC: 5A1955Z Respiratory Ventilation, Greater than 96 Consecutive Hours (ICD-10-PCS; 2019-01-29)
PROC: 30233N1 Transfusion of Nonautologous Red Blood Cells into Peripheral Vein, Percutaneous Approach (ICD-10-PCS; 2019-01-29)
PROC: 0W9F30Z Drainage of Abdominal Wall with Drainage Device, Percutaneous Approach (ICD-10-PCS; 2019-01-29)
PROC: 0BH17EZ Insertion of Endotracheal Airway into Trachea, Via Natural or Artificial Opening (ICD-10-PCS; 2019-01-29)
PROC: 30233K1 Transfusion of Nonautologous Frozen Plasma into Peripheral Vein, Percutaneous Approach (ICD-10-PCS; 2019-01-31)
PROC: 4A10X4Z Monitoring of Central Nervous Electrical Activity, External Approach (ICD-10-PCS; 2019-02-01)
PROC: 0DH63UZ Insertion of Feeding Device into Stomach, Percutaneous Approach (ICD-10-PCS; 2019-02-03)
PROC: 0DB68ZX Excision of Stomach, Via Natural or Artificial Opening Endoscopic, Diagnostic (ICD-10-PCS; 2019-02-03)
PROC: 0B110F4 Bypass Trachea to Cutaneous with Tracheostomy Device, Open Approach (ICD-10-PCS; 2019-02-08)
PROC: 0GBJ0ZZ Excision of Thyroid Gland Isthmus, Open Approach (ICD-10-PCS; 2019-02-08)
DX: A41.9 Sepsis, unspecified organism (principal); K35.32 Acute appendicitis with perforation, localized peritonitis, and gangrene, without abscess; J96.00 Acute respiratory failure, unspecified whether with hypoxia or hypercapnia; J69.0 Pneumonitis due to inhalation of food and vomit; E43 Unspecified severe protein-calorie malnutrition; I63.81 Other cerebral infarction due to occlusion or stenosis of small artery; G92 Toxic encephalopathy; K66.1 Hemoperitoneum; N17.0 Acute kidney failure with tubular necrosis; E87.1 Hypo-osmolality and hyponatremia; K56.7 Ileus, unspecified; N39.0 Urinary tract infection, site not specified; E87.2 Acidosis; J84.9 Interstitial pulmonary disease, unspecified; I50.32 Chronic diastolic (congestive) heart failure; D68.59 Other primary thrombophilia; I48.1 Persistent atrial fibrillation; D62 Acute posthemorrhagic anemia; E87.6 Hypokalemia; D75.1 Secondary polycythemia; F41.9 Anxiety disorder, unspecified; I11.0 Hypertensive heart disease with heart failure; I48.0 Paroxysmal atrial fibrillation; K20.9 Esophagitis, unspecified; K25.9 Gastric ulcer, unspecified as acute or chronic, without hemorrhage or perforation; K29.70 Gastritis, unspecified, without bleeding; K29.80 Duodenitis without bleeding; L89.899 Pressure ulcer of other site, unspecified stage; R13.10 Dysphagia, unspecified; E80.6 Other disorders of bilirubin metabolism; Z53.31 Laparoscopic surgical procedure converted to open procedure; Z79.899 Other long term (current) drug therapy; Z68.29 Body mass index [BMI] 29.0-29.9, adult
CPT/HCPCS: 31500; 36415; 36600; 70551; 71045; 74018; 74176; 76937; 77012; 80048; 80061; 80076; 82270; 82375; 82550; 82553; 82570; 82607; 82728; 82746; 82805; 82962; 83036; 83540; 83550; 83605; 83735; 83935; 84100; 84134; 84145; 84156; 84300; 84439; 84443; 84478; 84484; 85014; 85018; 85027; 85379; 86850; 86900; 86920; 86927; 87070; 87075; 87106; 88305; 88312; 88313; 88329; 93005; 93306; 93880; 93970; 94002; 94003; 94640; 96365; 96375; 97162; 97166; 99285; A6261; C1725; C1729; C1769; C9113; J0282; J0330; J0360; J1100; J1170; J1650; J1885; J1940; J1956; J2060; J2250; J2270; J2370; J2405; J2543; J2704; J2710; J2765; J3010; J3430; J3475; J3480; J3490; J7030; J7040; J7042; J7050; J7060; J7620; L8514; P9016; P9017; Q9967; A4315